=== PATIENT | female | born 1960 | race Caucasian/White ===

== ENCOUNTER 2017-04-04 09:26 | Emergency (ER) | payer MEDICARE, OTHER ==
[~2017-04-04] VITALS: Ht 165.1 cm; Wt 106.0 kg
[~2017-04-04 09:26] MED LIST: (None)3.5 GM OP; ABILIFY5 MG OR; AMOXICILLIN/CL875 MG PO; AMOXICILLIN500 MG OR; AMOXICILLIN500 MG PO; AMOXICILLIN875 MG OR; AUGMENTIN875TAB PO; CIPROFLOXACN500 MG PO; CLINDAMYCIN300 M1 PO; CORTISPORIN OP7.5 ML OP; DENIES CURRENT MEDS; PATANOL0.1 % OP; PENICILLN VK500 MG PO; TORADOL OR; TRIAMCINOLON0.11 EX; XANAX0.25 MG OR; ZITHROMAX500 MG PO
[2017-04-04] MEDS ORDERED: AMOXICILLIN500 MG PO (10:20)
[2017-04-04] MEDS ORDERED: LORTAB 10-325 M1 TAB PO (10:20)
[2017-04-04 10:25] VITALS: BP 124/77
== END 2017-04-04 10:25 | disposition home or self-care (01) ==
LOC: ED 09:26
DX: K04.7 Periapical abscess without sinus (principal); K08.89 Other specified disorders of teeth and supporting structures; F17.210 Nicotine dependence, cigarettes, uncomplicated

== ENCOUNTER 2018-01-10 16:26 | Emergency (ER) | payer MEDICARE, OTHER ==
[~2018-01-10] VITALS: Ht 165.1 cm; Wt 122.0 kg
[~2018-01-10 16:26] MED LIST changes: +LORTAB 10-325 M1 TAB PO
[2018-01-10] MEDS ORDERED: AUGMENTIN875TAB PO (16:39)
[2018-01-10 16:55] VITALS: BP 155/70
== END 2018-01-10 16:55 | disposition home or self-care (01) ==
LOC: ED 16:26
DX: K05.10 Chronic gingivitis, plaque induced (principal); K03.81 Cracked tooth; F17.210 Nicotine dependence, cigarettes, uncomplicated

== ENCOUNTER 2019-02-25 02:09 | Emergency (ER) | payer MEDICARE, MEDICAID ==
[~2019-02-25] VITALS: Ht 165.1 cm; Wt 100.0 kg
[2019-02-25 02:36] LABS: HEMATOCRIT 42.9 % (37.0-47.0); HEMOGLOBIN 14.1 g/dl (12.0-16.0); IMMATURE GRANULOCYTES 0.5 % (0.0-5.0); MEAN CELL VOLUME 94.1 fL CALC (80.0-100.0); MEAN CORPUSCULAR HGB 30.9 pG CALC (26.0-32.0); MEAN CORPUSCULAR HGB CONC 32.9 g/L CALC (32.0-36.0); NEUT# 6.04 thou/uL (2.00-7.15); RED BLOOD COUNT 4.56 mill/uL (4.20-5.60); RED CELL DISTRI WIDTH 14.5 % (11.5-15.5)
[2019-02-25 02:37] LABS: URINE BILIRUBIN - DIPSTICK NEGATIVE (NEGATIVE); URINE BLOOD DIPSTICK NEGATIVE (NEGATIVE); URINE COLOR YELLOW; URINE GLUCOSE - DIPSTICK NEGATIVE (NEGATIVE); URINE KETONE NEGATIVE (NEGATIVE); URINE LEUK ESTERASE NEGATIVE (NEGATIVE); URINE NITRITE - DIPSTICK NEGATIVE (Negative); URINE PROTEIN - DIPSTICK NEGATIVE (NEG-TRACE); URINE SPECIFIC GRAVITY 1.025; URINE UROBILINOGEN - DIPSTICK 0.2 E.U./dL (0.2)
[2019-02-25 03:16] LABS: ALBUMIN 4.4 g/dL (3.2-5.0); ALKALINE PHOSPHATASE 81 u/l (38-126); ANION GAP 15 (6-22 (CALC)); BUN 18 mg/dL (7-17); BUN/CREATININE RATIO 25 (12-20 (CALC)); CARBON DIOXIDE 25 mmol/l (22-30); CHLORIDE 106 mmol/l (95-108); CREATININE 0.7 mg/dL (0.5-1.0); GFR > 60 ML/MIN (>=60 (CALC)); GFR FOR AFR.AMER. > 60 ML/MIN (>=60 (CALC)); POTASSIUM 3.8 mmol/l (3.5-5.1); SGOT/AST 21 u/l (14-36); SODIUM 141 mmol/l (137-146); TOTAL PROTEIN 7.4 g/dL (6.3-8.2)
[2019-02-25 03:27] LABS: BILIRUBIN, TOTAL 0.5 mg/dL (0.0-1.4)
[2019-02-25 03:28] LABS: MYOGLOBIN 22 ng/mL (0 - 62)
[2019-02-25] MEDS ORDERED: ANTIVERT PO (03:40)
[2019-02-25 03:45] VITALS: BP 107/54
== END 2019-02-25 03:45 | disposition home or self-care (01) ==
LOC: ED 02:09
PROVIDERS: Family Medicine
DX: R42 Dizziness and giddiness (principal); F17.200 Nicotine dependence, unspecified, uncomplicated; H55.00 Unspecified nystagmus

== ENCOUNTER 2022-02-10 17:19 | Emergency (ER) | payer MEDICARE, MEDICAID ==
[2022-02-10] VITALS (9 sets, daily range): BP systolic 96–148; BP diastolic 59–97
[~2022-02-10] VITALS: Ht 165.1 cm; Wt 104.0 kg
[~2022-02-10 17:19] MED LIST changes: +ANTIVERT PO
[2022-02-10 18:54] LABS: IMMATURE GRANULOCYTES 0.4 % (0.0-5.0); MEAN CELL VOLUME 96.3 fL CALC (80.0-100.0); MEAN CORPUSCULAR HGB 31.2 pG CALC (26.0-32.0); MEAN CORPUSCULAR HGB CONC 32.4 g/dL CAL (32.0-36.0); NEUT# 4.22 thou/uL (2.00-7.15); RED BLOOD COUNT 3.78 mill/uL (4.20-5.60); RED CELL DISTRI WIDTH 14.3 % (11.5-15.5)
[2022-02-10 18:55] LABS: HEMATOCRIT 36.4 % (37.0-47.0); HEMOGLOBIN 11.8 g/dl (12.0-16.0)
[2022-02-10 19:13] LABS: ALBUMIN 3.8 g/dL (3.2-5.0); ALKALINE PHOSPHATASE 71 u/l (38-126); ANION GAP 9 (6-22 (CALC)); BUN 8 mg/dL (8-23); BUN/CREATININE RATIO 12 (12-20 (CALC)); CARBON DIOXIDE 27 mmol/l (22-30); CHLORIDE 104 mmol/l (95-108); CREATININE 0.7 mg/dL (0.5-1.0); GFR > 60 ML/MIN (>=60 (CALC)); GFR FOR AFR.AMER. > 60 ML/MIN (>=60 (CALC)); POTASSIUM 3.8 mmol/l (3.5-5.1); SGOT/AST 22 u/l (9-36); SODIUM 136 mmol/l (137-146); TOTAL PROTEIN 6.8 g/dL (6.3-8.2)
[2022-02-10 19:15] LABS: BILIRUBIN, TOTAL 0.2 mg/dL (0.0-1.4); D-DIMER 0.63 mg/L (0.19-0.60)
[2022-02-10 19:25] LABS: ACT PARTIAL THROMBO TIME 26.3 SECONDS (20.0-32.5)
[2022-02-10] MEDS ORDERED: PAXLOVID PO (22:10)
== END 2022-02-10 22:39 | disposition home or self-care (01) ==
LOC: ED 17:19
PROVIDERS: Family Medicine
DX: U07.1 COVID-19 (principal); R11.0 Nausea; R51.9 Headache, unspecified; F17.200 Nicotine dependence, unspecified, uncomplicated
CPT/HCPCS: Q9967